=== PATIENT | male | born 1970 ===

== ENCOUNTER 2019-02-13 06:09 | Day surgery (SDC) | payer OTHER ==
[2019-02-10 11:37] VITALS: BMI 22.8
[2019-02-13] MEDS ORDERED: BUPIVACAINE HCL/PF 0.5% (5MG/ML) 10 ML VIAL ONE (07:14)
[2019-02-13] MEDS ORDERED: PROPOFOL 20 ML ONE ×3 (07:55→09:14)
[2019-02-13] MEDS ORDERED: fentaNYL CITRATE 250 MCG/5 ML VIAL ONE (07:55)
[2019-02-13] MEDS ORDERED: ROCURONIUM BROMIDE 50 MG/5 ML SYRINGE ONE (07:57)
[2019-02-13] MEDS ORDERED: SUCCINYLCHOLINE CHLORIDE 200 MG/10 ML SYRINGE ONE (08:01)
[2019-02-13] MEDS ORDERED: VECURONIUM BROMIDE 10 MG VIAL ONE (08:01)
[2019-02-13] MEDS ORDERED: LIDOCAINE HCL/PF 2% SDV 5ML VIAL ONE (08:01)
[2019-02-13] MEDS ORDERED: EPHEDRINE SULFATE/0.9% NACL/PF 50 MG/10 ML SYRINGE NR ONE (08:05)
[2019-02-13] MEDS ORDERED: SODIUM CHLORIDE 0.9% P/F 10 ML VIAL IJ ONE (08:07)
--- NOTE | 2019-02-13 08:17 | HP ---
Admitting History and Physical - Primary Care Physician PCP: Nenita Felipe - Admission Chief Complaint: LEFT INGUINAL BULGE History Source: Patient Limitations to Obtaining History: No Limitations - Past Medical History Cardiovascular: Yes: HTN Endocrine: Yes: Diabetes Mellitus - Past Surgical History Past Surgical History: Yes: None - Smoking History Smoking history: Former smoker Have you smoked in the past 12 months: No Aproximately how many cigarettes per day: 2,015 If you are a former smoker, when did you quit?: 2014 - Alcohol/Substance Use Hx Alcohol Use: No Home Medications - Allergies Allergies/Adverse Reactions: Allergies Allergy/AdvReac Type Severity Reaction Status Date / Time No Known Allergies Allergy Verified 02/13/19 06:44 - Home Medications Home Medications: Ambulatory Orders Lisinopril 20 mg PO DAILY 02/10/19 Lisinopril/Hydrochlorothiazide [Lisinopril-Hctz 20-12.5 mg Tab] 1 each PO HS 09/30 Metformin HCl [Glucophage] 1,000 mg PO BID 02/10/19 Review of Systems - Review of Systems Constitutional: reports: No Symptoms Neck: reports: No Symptoms Respiratory: reports: No Symptoms Gastrointestinal: reports: No Symptoms, Other (left inguinal bulge) Genitourinary: reports: No Symptoms Physical Examination Vital Signs: Vital Signs Temperature 98.2 F 02/13/19 06:39 Pulse Rate 60 02/13/19 06:39 Respiratory Rate 18 02/13/19 06:39 Blood Pressure 137/92 02/13/19 06:39 O2 Sat by Pulse Oximetry (%) 100 02/13/19 06:41 Constitutional: Yes: Well Nourished, No Distress Eyes: Yes: Conjunctiva Clear HENT: Yes: Normocephalic Neck: Yes: Supple Cardiovascular: Yes: Regular Rate and Rhythm Respiratory: Yes: CTA Bilaterally Gastrointestinal: Yes: Soft, Hernia (reducible left inguinal bulge 4 x 4 cm) ...Rectal Exam: Yes: Deferred Extremities: Yes: WNL Integumentary: Yes: WNL Problem List - Problems (1) Left inguinal hernia Assessment/Plan: robotic left inguinal hernia repair with mesh. Code(s): K40.90 - UNIL INGUINAL HERNIA, W/O OBST OR GANGR, NOT SPCF RECUR
[2019-02-13] MEDS ORDERED: ceFAZolin SODIUM 1 GM VIAL IVPB ONE (08:30)
[2019-02-13] MEDS ORDERED: ceFAZolin SODIUM 1 GM VIAL ONE (08:38)
[2019-02-13] MEDS ORDERED: BUPIVACAINE HCL/PF 0.5% (5MG/ML) 10 ML VIAL IJ ONE (08:46)
[2019-02-13] MEDS ORDERED: ACETAMINOPHEN INJECTION 100 ML IVPB ONE (09:01)
[2019-02-13] MEDS ORDERED: DEXAMETHASONE SOD PHOSPHATE 4 MG/1 ML VIAL ONE (09:04)
[2019-02-13] MEDS ORDERED: NEOSTIGMINE METHYLSULFATE 0.5 MG/ML - 10 ML MDV ONE (09:04)
[2019-02-13] MEDS ORDERED: oxyCODONE HCL 5 MG TABLET PO PRN ×2 (09:22)
[2019-02-13] MEDS ORDERED: IBUPROFEN 800 MG/8 ML IJ IVPB PRN (09:22)
[2019-02-13] MEDS ORDERED: ONDANSETRON 4 MG/2 ML VIAL IVPUSH PRN (09:22)
[2019-02-13] MEDS ORDERED: LACTATED RINGERS SOLUTION 1,000 ML IV SCH (09:30)
[2019-02-13] MEDS ORDERED: GLYCOPYRROLATE 0.2 MG/1 ML VIAL ONE (10:13)
--- NOTE | 2019-02-13 10:34 | OP ---
Operative Note - Note: Operative Date: 02/13/19 Pre-Operative Diagnosis: Left inguinal hernia Operation: Robotic LIH repair with mesh Findings: moderately large direct inguinal hernia Implants: Progrip mesh Post-Operative Diagnosis: Same as Pre-op Surgeon: Deandre Barrett Rubber And Pounder: Dinesh Gutierrez Anesthesia: General Specimens Removed: none Estimated Blood Loss (mls): 3 Operative Report Dictated: Yes
[2019-02-13] MEDS ORDERED: IBUPROFEN 800 MG/8 ML IJ IVPB ONE ×2 (10:36→10:40)
--- NOTE | 2019-02-13 11:33 | OP ---
DATE OF OPERATION: 02/13/2019 PROCEDURE: Robotic-assisted laparoscopic left inguinal hernia repair with mesh. PREOPERATIVE DIAGNOSIS: Left inguinal hernia with no obstruction. POSTOPERATIVE DIAGNOSIS: Left inguinal hernia with no obstruction. SURGEON: Deandre Barrett MD DISINTEGRATOR: TOMASA So ANESTHESIA: General endotracheal. FINDINGS AND PROCEDURE: This is a 48-year-old male who presents with a 2-year history of a left inguinal bulge which has been slowly increasing in size but was noted to be reducible with minimal pain on exertion. On physical exam patient has a reducible 4 x 4-cm left inguinal bulge so patient was advised elective inguinal hernia repair and consent was obtained after discussing the risks, benefits and alternatives of the procedure. Patient was brought to the operating room and placed in the supine position. General endotracheal anesthesia was administered. The abdomen was prepped and draped in the usual sterile fashion. Using 0.5% Marcaine local anesthesia was administered to the proposed incision sites. The peritoneal cavity was entered using the Veress needle technique via an 8-mm supraumbilical incision. Pneumoperitoneum was established which was followed by the insertion of an 8-mm blunt port. The video laparoscope was inserted and the peritoneal cavity was carefully inspected and was noted to be free of inadvertent injury. Two 8-mm ports were inserted at the same level to the right and left of the supraumbilical port 8 cm away from each other under direct vision. Afterwards the patient was then placed in a steep Trendelenburg position. A medium to large direct hernia was identified. A small right inguinal hernia which was also a direct hernia was also identified. So it was decided to perform a left inguinal hernia repair and observe the asymptomatic small right inguinal hernia as patient also was not consented for a right inguinal hernia repair. The target organ was set and the robotic arms were docked. A fenestrated bipolar forceps was placed at the left-sided port and the EndoWrist storm connected to monopolar cautery was inserted in the right-sided port. At this time then scrubbed out to commence the console part of the procedure. The parietal peritoneum was scored using the EndoWrist storm connected to monopolar cautery and to create the peritoneal pocket. Dissection was carried medially towards the medial umbilical ligament and laterally towards the anterior-superior iliac spine. The pocket was then carefully made combining blunt and sharp dissection with cautery using the inferior epigastric vessel as the landmark. The thick preperitoneal fat incarcerated into the direct hernia was carefully dissected and reduced, exposing a very attenuated transversalis fascia. Dissection was carried medially towards the underside of the symphysis pubis and laterally towards the superior iliac spine and down inferior towards the psoas muscle. The peritoneal reflection attached to the spermatic cord was also taken down sharply to provide adequate about 7 cm away from the internal ring. After the dissection was deemed satisfactory the direct hernial defect was apposed with continuous V-Loc No. 1 nonabsorbable suture taking care to avoid taking bites on the spermatic cord of the internal ring. Afterwards the ProGrip inguinal hernia mesh was deployed covering both the direct hernia, the internal ring and the femoral canal. After the deployment of the mesh was deemed satisfactory the parietal peritoneum was closed or apposed with continuous V-Loc 2-0 absorbable sutures. The instruments were removed and the robotic arms were undocked. The pneumoperitoneum was evacuated and the ports were removed. The wounds were closed using subcuticular Monocryl, Biosyn 4-0 suture and reinforced with Dermabond. Patient was successfully extubated and transferred to the postanesthesia care unit in satisfactory condition. Estimated blood loss was about 3 mL. Wound class clean. The patient received a gram of Ancef prior to starting the procedure. Jose Angel [id number]
--- NOTE | 2019-02-13 12:00 | SURG ---
Surgery Editor & Co Founder Note Editor & Co Founder: Dinesh Gutierrez PA-C Date of Service: 02/13/19 Diagnosis: Robotic Left inguinal hernia repair with mesh Procedure: moderately large direct inguinal hernia I was present for the entirety of the operative procedure. For further detail, please refer to operative report. Visit type - Case Type Case Type: Scheduled - Emergency Emergency Visit: No - New patient This patient is new to me today: Yes Date on this admission: 02/13/19 - Critical Care Critical Care patient: No
[2019-02-13] MEDS ORDERED: oxyCODONE HCL 5 MG TABLET ONE (12:23)
[2019-02-13 14:17] VITALS: BP 128/77; PULSE 70; TEMP 98
== END 2019-02-13 14:18 | disposition home or self-care (01) ==
LOC: JASU-SURG 06:09
PROVIDERS: ATTEND Surgery
PROC: 8E0W4CZ Robotic Assisted Procedure of Trunk Region, Percutaneous Endoscopic Approach (ICD-10-PCS; 2019-02-13)
PROC: 0YU64JZ Supplement Left Inguinal Region with Synthetic Substitute, Percutaneous Endoscopic Approach (ICD-10-PCS; principal; 2019-02-13 08:00)
DX: K40.90 Unilateral inguinal hernia, without obstruction or gangrene, not specified as recurrent (principal); I10 Essential (primary) hypertension; E11.9 Type 2 diabetes mellitus without complications; Z79.84 Long term (current) use of oral hypoglycemic drugs
CPT/HCPCS: 49650; S2900; 82962; J0131